=== PATIENT | female | born 1950 | race Caucasian/White ===

== ENCOUNTER → 2017-02-01 | Outpatient (CLI) | payer OTHER ==
[~2017-02-01] MED LIST: GADOBUTROL 10 ML VIAL IVP ONE
[2017-02-01 14:05] LABS: CREATININE 0.7 mg/dL (0.6-1.0); GLOMERULAR FILTRATION RATE > 60
== END ==
LOC: FIMAGING 12:53
PROVIDERS: ATTEND Surgery
DX: N63 Unspecified lump in breast (principal)
CPT/HCPCS: 0159T; A9585; C8908

== ENCOUNTER → 2017-03-13 | Outpatient (CLI) | payer OTHER ==
[~2017-03-13] MED LIST changes: +BUPIVACAINE 0.5% 30 ML SDV ONE; +FLUMAZENIL 0.5 MG/5 ML MDV IVP ONE; +LIDOCAINE 1% 5 ML SDV ONE; +MIDAZOLAM 2 MG/2 ML VIAL ONE; +NA BICARBONATE 50 MEQ/50 ML VIAL ONE; +NALOXONE HCL 0.4 MG/ML INJ ONE; +fentaNYL 100 MCG/2 ML INJ ONE
== END ==
LOC: FIMAGING 08:11
PROVIDERS: ATTEND Surgery
PROC: 0HBT3ZX Excision of Right Breast, Percutaneous Approach, Diagnostic (ICD-10-PCS; principal; 2017-03-13)
DX: D24.1 Benign neoplasm of right breast (principal)
CPT/HCPCS: 0159T; 19085; 77059; 77065; 99152; A9585; C8908; G0206; J2250; J2310; J3010

== ENCOUNTER → 2017-08-06 | Outpatient (CLI) | payer OTHER | LOC: FIMAGING 15:07 | PROVIDERS: ATTEND Surgery | DX: Z12.31 Encounter for screening mammogram for malignant neoplasm of breast (principal) | CPT/HCPCS: G0202 ==

== ENCOUNTER 2017-08-21 10:38 | Day surgery (SDC) | payer OTHER ==
[2017-08-21] MEDS ORDERED: LIDOCAINE 1% 300 MG/30 ML SDV ONE (10:39)
[2017-08-21] MEDS ORDERED: BUPIVACAINE 0.5% 30 ML SDV ONE (10:40)
[2017-08-21] MEDS ORDERED: ROPIVACAINE HCL 20 MG/10 ML INJ EP ONE (10:40)
[2017-08-21] MEDS ORDERED: BACITRACIN 50,000 UNITS/10 ML SYR IRR ONE (10:40)
[2017-08-21] MEDS ORDERED: LR 1,000 ML IV ONE (11:12)
--- NOTE | 2017-08-21 11:25 | PDHPUP ---
History & Physical Update H&P update statement: This history and physical update is based on an assessment of the patient which was completed after admission or registration (within 24 hours), but prior to the surgery/procedure. H&P changes: NONE
[2017-08-21] MEDS ORDERED: ROPIVACAINE HCL 150 MG/30 ML INJ ONE (11:36)
[2017-08-21] MEDS ORDERED: MIDAZOLAM 2 MG/2 ML VIAL IVP ONE (11:49)
--- NOTE | 2017-08-21 11:50 | PDANEPAE ---
ANE History of Present Illness remove foot hardware ANE Past Medical History - Cardiovascular History Hx Hypertension: No Hx Arrhythmias: No Hx Chest Pain: No Hx Coronary Artery / Peripheral Vascular Disease: No Hx CHF / Valvular Disease: No Hx Palpitations: No - Pulmonary History Hx COPD: No Hx Asthma/Reactive Airway Disease: No Hx Recent Upper Respiratory Infection: No Hx Oxygen in Use at Home: No Hx Sleep Apnea: No Sleep Apnea Screening Result - Last Documented: Negative - Neurologic History Hx Cerebrovascular Accident: No Hx Seizures: No Hx Dementia: No - Endocrine History Hx Diabetes: No - Renal History Hx Renal Disorders: No - Liver History Hx Hepatic Disorders: No - Neurological & Psychiatric Hx Hx Neurological and Psychiatric Disorders: No - Cancer History Hx Cancer: No - Congenital Disorder History Hx Congenital Disorders: No - GI History Hx Gastrointestinal Disorders: Yes Gastrointestinal History Comment: Colon polyps - Other Health History Other Health History: none - Chronic Pain History Chronic Pain: No - Surgical History Prior Surgeries: colon surgery 10/2001. fibroid surgery- 02/1999. tonsillectomy ANE Review of Systems Review of Systems: - Exercise capacity METS (RN): 5 METS ANE Patient History - Allergies Allergies/Adverse Reactions: chlordiazepoxide HCl [From Librium] Allergy (Mild, Verified 02/28/17 14:17) ITCHY RASH Sulfa (Sulfonamide Antibiotics) Allergy (Mild, Verified 02/28/17 14:17) ITCHY RASH ENVIRONMENTAL Allergy (Mild, Uncoded 02/28/17 14:17) STUFFY NOSE - Home Medications Home Medications: Calcium DAILY 02/28/17 [Last Taken 08/20/17] Fexofenadine HCl DAILY 02/28/17 [Last Taken 08/20/17] Glucosamine DAILY 02/28/17 [Last Taken 08/20/17] Multivitamin DAILY 02/28/17 [Last Taken 08/20/17] - NPO status NPO Since - Liquids (Date): 08/21/17 NPO Since - Liquids (Time): 08:45 NPO Since - Solids (Date): 08/20/17 NPO Since - Solids (Time): 20:45 - Anes Hx Anes Hx: no prior problems - Smoking Hx Smoking Status: Never smoked - Family Anes Hx Family Hx Anesthesia Complications: None ANE Labs/Vital Signs - Vital Signs Blood Pressure: 111/69 Heart Rate: 69 Respiratory Rate: 14 O2 Sat (%): 96 Height: 158.75 cm Weight: 58.06 kg ANE Physical Exam - Airway Mallampati Score: Class 2 Mouth exam: normal dental/mouth exam - Pulmonary Pulmonary: no respiratory distress - Cardiovascular Cardiovascular: regular rate and rhythym - ASA Status ASA Status: II ANE Anesthesia Plan Anesthesia Plan: GA with mask, MAC
[2017-08-21] MEDS ORDERED: PROPOFOL/EMULSION 500 MG/50 ML BOTTLE IV ONE (11:53)
[2017-08-21] MEDS ORDERED: fentaNYL 100 MCG/2 ML INJ ONE (11:53)
[2017-08-21] MEDS ORDERED: LIDOCAINE 2% 5 ML SDV ONE (11:53)
[2017-08-21] MEDS ORDERED: CEFAZOLIN 1 GM/DEXTROSE/50 ML BAG IV ONE (11:53)
[2017-08-21] MEDS ORDERED: fentaNYL 100 MCG/2 ML INJ IVP PRN (13:11)
[2017-08-21] MEDS ORDERED: ONDANSETRON 4 MG/2 ML VIAL IVP PRN (13:11)
[2017-08-21] MEDS ORDERED: NALOXONE HCL 0.4 MG/ML INJ IVP PRN (13:11)
[2017-08-21] MEDS ORDERED: LR 500 ML IV PRN (13:11)
[2017-08-21] MEDS ORDERED: ALBUTEROL 3 ML DEYVIAL IH PRN (13:11)
--- NOTE | 2017-08-21 13:11 | POSTANESTH ---
Post Anesthetic Evaluation Cardiovascular Status: Normal, Stable Respiratory Status: Normal, Stable Level of Consciousness/Mental Status: Can Participate in Eval Pain Control: Adequate, Prn Tx Ordered Nausea/Vomiting Control: Adequate, Prn Tx Ordered Complications Possibly Related to Anesthesia: None Noted
--- NOTE | 2017-08-21 13:14 | POSTOPPROG ---
Post Op Note Date of Operation: 08/21/17 Surgeon: Rosangela Rojas Section Crews Activities Clerk: none Anesthesiologist: Pascual Marrero MD Pre-op Diagnosis: deep internal fixation left foot Post-op Diagnosis: deep internal fixation left foot Indication: irritation ,pain Procedure: removal of deep hardware left foot. first met and hallux two incisions. Findings: imbedded and loose Inf/Abcess present in the surg proc area at time of surgery?: No Depth: Deep Incisional (Fascial) Complications: none . 2 screws, one pin removed. one screw first met left in place since buried and embedded. This screw not causing patient symptoms. Specimen(s): none
[2017-08-21 13:37] VITALS: TEMP 97.5
[2017-08-21 14:02] VITALS: O2SAT 98
[2017-08-21 14:04] VITALS: PULSE 58
[2017-08-21 14:31] VITALS: BP 104/66; RESP 18
[2017-08-21] MEDS ORDERED: ceFAZolin 0.5 GM in D5W 50 ML IV ONE (20:00)
--- NOTE | 2017-08-22 04:32 | GOP ---
[f rep st] OPERATIVE REPORT DATE OF OPERATION: 08/21/2017 SURGEON: Rosangela Rojas DPM ANESTHESIA: MAC/light general. ANESTHESIOLOGIST: Pascual Marrero MD. PREOPERATIVE DIAGNOSIS: 1. Deep internal fixation of the hallux, left foot. 2. Deep internal fixation of the first metatarsal, left foot. POSTOPERATIVE DIAGNOSIS: 1. Deep internal fixation of the hallux, left foot. 2. Deep internal fixation of the first metatarsal, left foot. PROCEDURE PERFORMED: 1. Removal of hardware, hallux, left foot; 1 K-wire 1 screw. 2. Removal of hardware, 1st metatarsal, with 1 screw removed. FINDINGS: DESCRIPTION OF PROCEDURE: The patient was brought into the operating room, placed on the operating t able in the supine position. Intravenous sedation administered by the anesthesiologist. A posterior tibial and peripheral nerve block was obtained utilizing a total of 15 cc of a 1:1:1 mix of 0.5% Mar steven plain, 1% lidocaine plain and 0.5% ropivacaine plain. The lower extremity was prepped and drap ed in the usual sterile manner. After the limb was elevated, exsanguinated with an Esmarch bandage a nd ankle tourniquet inflated to 230 mmHg and the procedure was begun. Webril padding utilized under the ankle cuff. Attention was directed toward the dorsomedial aspect of the base of the hallux where a 2 cm incision was created. Incision was carefully deepened with care of neurovascular structures and clamp and cau terized bleeders. Hardware was easily identified, pin was buried within the bone, utilizing a rotati ng bur 1 was resected and was able to be removed. As well as bone was noted around the head of the s crew. The Marcia bur was utilized to remove to resect the bone and then the screw was able to be re moved without difficulty. Wound copiously irrigated, bacitracin irrigation solution. Attention was directed toward the dorsal aspect of the 1st metatarsal along previous incision line. Incision was carefully deepened with care of neurovascular structures and clamp and cauterize bleeder s. A 1.5 to 2 cm incision was created. Incision carefully deepened with care of neurovascular struc tures, and easily identified were the 2 screw heads. Distal screw head was a larger 3.0 with a porti on of it buried, however, easily bone was resected and the screw was removed without difficulty. The more proximal screw was much smaller and very imbedded within bone, as well as bone within the hole of the cannulated section, utilizing a bone pick I was then able to remove the bone and, therefore, d ecided to leave that screw in place. It was the more distal screw, the 3.0, that had threads that we nt beyond the plantar cortices where this screw did not extend in a fashion that I feel was causing h er any irritation or problems and obviously was quite firm in place. The wound was copiously irrigat ed with bacitracin irrigation solution. Tourniquet was released and a normal hyperemic response was noted to all digits. Periosteal closure achieved with 3-0 Vicryl. Subcutaneous closure with 4-0 Mon ocryl and the skin was closed with 4-0 Prolene in a horizontal mattress and simple interrupted suture manner. Dressings included Xeroform, 4 x 4, Gardenia, reinforced with tape and an Nino bandage. Ace casey tolerated the procedure and anesthesia well, left the operating room with vital signs stable and va scular status intact to all digits. There were no intraoperative complications. Minimal blood loss. No specimens sent to Pathology. No additional injectables. Postoperative recovery and was doing w ell. Her will be providing transportation home. She is to follow up in our office in 2 days for wound check. Prognosis good. INDICATIONS FOR PROCEDURE: Irritation and pain. X-rays demonstrate loosening of hardware. Threads extending beyond cortical bone. At this time, surgical removal of hardware medically necessary at si alannah that are symptomatic. There is also hardware present in the proximal aspect of the 1st metatarsa l cuneiform joint. However, she is asymptomatic and there are signs of inflammation in this location . /[id number]/MODL
== END 2017-08-21 14:51 | disposition home or self-care (01) ==
LOC: FSGY 10:38
PROVIDERS: ATTEND Podiatrist
PROC: 0QPP04Z Removal of Internal Fixation Device from Left Metatarsal, Open Approach (ICD-10-PCS; principal; 2017-08-21 12:00)
DX: T84.84XA Pain due to internal orthopedic prosthetic devices, implants and grafts, initial encounter (principal); T84.223A Displacement of internal fixation device of bones of foot and toes, initial encounter; M79.672 Pain in left foot
CPT/HCPCS: J0690; J2250; J2704; J2795; J3010

== ENCOUNTER → 2018-08-07 | Outpatient (CLI) | payer OTHER, MEDICARE | LOC: FIMAGING 09:01 | PROVIDERS: ATTEND Surgery | DX: Z12.31 Encounter for screening mammogram for malignant neoplasm of breast (principal) ==